=== PATIENT | male | born 1995 | race Caucasian/White ===

== ENCOUNTER 2018-06-19 11:33 | Emergency (ER) | payer SELFPAY ==
--- NOTE | 2018-06-19 11:35 | EDM.PDOC ---
ED HPI GENERAL MEDICAL PROBLEM - General Stated Complaint: RIGHT HAND PAIN Time Seen by Provider: 06/19/18 11:34 Source of Information: Reports: Patient History Limitations: Reports: No Limitations - History of Present Illness INITIAL COMMENTS - FREE TEXT/NARRATIVE: HISTORY AND PHYSICAL: History of present illness: Patient is a 23-year-old male who presents to the emergency room with complaints of right hand and wrist pain post fall. He states last evening he had slipped on the ice and fallen on an outstretched hand. He previously did have a fracture of the right hand and is concerned he may have reinjured it. He denies hitting his head or any loss of consciousness. Review of systems: As per history of present illness and below otherwise all systems reviewed and negative. Past medical history: As per history of present illness and as reviewed below otherwise noncontributory. Surgical history: As per history of present illness and as reviewed below otherwise noncontributory. Social history: See social history for further information Family history: As per history of present illness and as reviewed below otherwise noncontributory. Physical exam: General: Well-developed and well-nourished 23-year-old male. Alert and oriented. Nontoxic appearing and in no acute distress. HEENT: Atraumatic, normocephalic, pupils equal and reactive bilaterally, negative for conjunctival pallor or scleral icterus, mucous membranes moist, throat clear, neck supple, nontender, trachea midline. No drooling or trismus noted. No meningeal signs Lungs: Clear to auscultation, breath sounds equal bilaterally, chest nontender. Heart: S1S2, regular rate and rhythm without overt murmur Abdomen: Soft, nondistended, nontender. Negative for masses or hepatosplenomegaly. Negative for costovertebral tenderness. Pelvis: Stable nontender. Genitourinary: Deferred. Rectal: Deferred. Skin: Faint bruising noted to the posterior aspect of the hand along the fourth and fifth digit going into the ulnar surface of the wrist otherwise skin is intact, warm, dry. No lesions or rashes noted. Extremities: Pain with palpation to the base of the fourth and fifth digits going into the ulnar surface of the wrist. Mild soft tissue swelling and bruising noted. Strong radial pulse. Capillary refill less than 3 seconds. CMS intact. negative for cords or calf pain. Neurovascular unremarkable. Neuro: Awake, alert, oriented. Cranial nerves II through XII unremarkable. Cerebellum unremarkable. Motor and sensory unremarkable throughout. Exam nonfocal. Notes: X-rays show no acute findings. I will place the patient in a wrist splint. Supportive care measures were reviewed and discussed. He voices understanding and is agreeable to plan of care. Denies any further questions or concerns at this time. Diagnostics: Wrist X-ray, Hand X-ray Therapeutics: Splint Prescription: Diclofenac (#20) Impression: Right wrist injury Plan: 1. Rest, ice, elevate the affected extremity as able. Please wear the splint as we discussed. 2. Tylenol and/or ibuprofen as needed for pain management. 3. Please follow-up with the orthopedic provider on Wednesday. Return to the ED as needed and as discussed. Definitive disposition and diagnosis as appropriate pending reevaluation and review of above. right hand Pain Score (Numeric/FACES): 8 - Related Data Allergies Allergy/AdvReac Type Severity Reaction Status Date / Time No Known Allergies Allergy Verified 11/30/13 22:59 Home Meds: Home Meds . [No Known Home Meds] 11/30/13 [History] Past Medical History - Past Health History Medical/Surgical History: Denies Medical/Surgical History ED ROS GENERAL - Review of Systems Review Of Systems: ROS reveals no pertinent complaints other than HPI. ED EXAM, GI/ABD - Physical Exam Exam: See Below (See dictation) Course - Vital Signs Last Recorded V/S: Last Vital Signs Temp 98.2 F 06/19/18 11:47 Pulse 84 06/19/18 11:47 Resp 14 06/19/18 11:47 BP 155/108 H 06/19/18 11:47 Pulse Ox 96 06/19/18 11:47 - Orders/Labs/Meds Orders: Active Orders 24 hr Category Date Time Status Hand 2V Rt [CR] Stat Exams 06/19/18 11:45 Taken Wrist 2V Rt [CR] Stat Exams 06/19/18 11:45 Taken Departure - Departure Time of Disposition: 12:52 Disposition: Home, Self-Care 01 Clinical Impression: Right wrist injury Qualifiers: Encounter type: initial encounter Qualified Code(s): S69.91XA - Unspecified injury of right wrist, hand and finger(s), initial encounter - Discharge Information Referrals: PCP,None [Primary Care Provider] - Additional Instructions: The following information is given to patients seen in the emergency department who are being discharged to home. This information is to outline your options for follow-up care. We provide all patients seen in our emergency department with a follow-up referral. The need for follow-up, as well as the timing and circumstances, are variable depending upon the specifics of your emergency department visit. If you don't have a primary care physician on staff, we will provide you with a referral. We always advise you to contact your personal physician following an emergency department visit to inform them of the circumstance of the visit and for follow-up with them and/or the need for any referrals to a consulting specialist. The emergency department will also refer you to a specialist when appropriate. This referral assures that you have the opportunity for follow-up care with a specialist. All of these measure are taken in an effort to provide you with optimal care, which includes your follow-up. Under all circumstances we always encourage you to contact your private physician who remains a resource for coordinating your care. When calling for follow-up care, please make the office aware that this follow-up is from your recent emergency room visit. If for any reason you are refused follow-up, please contact the [facility] Emergency Department at and asked to speak to the emergency department charge nurse. [facility] [address] [place], [place] [id number] [address] [address] [facility] - [facility] Professional Building [address] [place] [address], [address] [place] [address] 1. Rest, ice, elevate the affected extremity as able. Please wear the splint as we discussed. 2. Tylenol and/or ibuprofen as needed for pain management. 3. Please follow-up with the orthopedic provider on Wednesday. Return to the ED as needed and as discussed. - My Orders Last 24 Hours: My Active Orders 06/19/18 11:45 Hand 2V Rt [CR] Stat Wrist 2V Rt [CR] Stat - Assessment/Plan Last 24 Hours: My Active Orders 06/19/18 11:45 Hand 2V Rt [CR] Stat Wrist 2V Rt [CR] Stat
--- NOTE | 2018-06-20 20:10 | CR ---
EXAM DATE: 06/19/18 PATIENT'S AGE: 23 Patient: BIA LUCIA Facility: [place], [place] Site . Site : 1995 Study: XRay Extremity Right wrist [id number]/13/2019 12:30:53 PM Ordering Physician: Doctor Patricia Final Report: INDICATION: Pain. COMPARISON: None. TECHNIQUE: Right wrist 2 views. FINDINGS: Two views of the right wrist demonstrate no fractures or focal osseous lesions. Alignment is normal. There are no soft tissue abnormalities. IMPRESSION: Negative right wrist. Dictated by Chema Dunham MD @ Jun 19 2018 12:39PM (Electronic Signature) Report Signed by Proxy. KENNEDI
--- NOTE | 2018-06-20 20:13 | CR ---
EXAM DATE: 06/19/18 PATIENT'S AGE: 23 Patient: BIA LUCIA Facility: [place], [place] Site . Site : 1995 Study: XRay Extremity Right hand [id number]/13/2019 12:31:25 PM Ordering Physician: Doctor Patricia Final Report: Indication: Pain. Technique: Two views of the right hand were obtained. Comparison: None Findings: No acute fracture or subluxation is identified. The joint spaces are well maintained. Impression: No acute fracture. Dictated by Leatha Jurado MD @ Jun 19 2018 12:39PM (Electronic Signature) Report Signed by Proxy. KENNEDI
== END 2018-06-19 13:05 | disposition home or self-care (01) ==
LOC: MW.ED 11:33
DX: S60.041A Contusion of right ring finger without damage to nail, initial encounter (principal); S60.051A Contusion of right little finger without damage to nail, initial encounter; W00.0XXA Fall on same level due to ice and snow, initial encounter
CPT/HCPCS: 73100-26-RT; 73100-RT; 73120-26-RT; 73120-RT; 99283

== ENCOUNTER 2018-11-24 13:00 | Emergency (ER) | payer OTHER ==
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
[2018-11-24 14:25] LABS: CHLORIDE,CL 103 mmol/L (98-107); SODIUM,NA 139 mmol/L (136-148)
[2018-11-24] MEDS ORDERED: Acetaminophen 500 MG Tab PO ONE (15:11)
== END 2018-11-24 15:23 | disposition home or self-care (01) ==
LOC: MW.ED 13:00
DX: M54.5 Low back pain (principal); R74.0 Nonspecific elevation of levels of transaminase and lactic acid dehydrogenase [LDH]; V89.2XXA Person injured in unspecified motor-vehicle accident, traffic, initial encounter
CPT/HCPCS: 36415; 70450; 71045; 72100; 72125; 72170; 80053; 81001; 85025; 85610; 87086; 99284; A9270